=== PATIENT | male | born 1980 | race Hispanic/Latino ===

== ENCOUNTER 2024-02-20 12:51 | Emergency (ER) | payer SELFPAY ==
[~2024-02-20] VITALS: Ht 172.7 cm; Wt 108.0 kg
[2024-02-20 12:58] VITALS: TEMP 98.3
[2024-02-20 13:00] VITALS: RESP 16
[2024-02-20] MEDS: DIPHENHYDRAMINE HCL INJ 50 MG/ML VIAL IV ONE (13:20)
[2024-02-20] MEDS: ONDANSETRON HCL INJ 2MG/ML 2ML 2 MG/ML VIAL IV STA ×2 (13:20→14:12)
[2024-02-20] MEDS: SODIUM CHLORIDE 0.9% 1000ML 1,000 ML IV STA (13:20)
[2024-02-20] MEDS: HYDROCODONE/APAP 10MG-325MG TAB PO ONE (13:21)
[2024-02-20 13:46] LABS: BASOPHILS # (AUTO) 0.1 (0.0-0.1); BASOPHILS % 1.3 % (0.0-1.0); EOSINOPHILS # (AUTO) 0.1 (0.0-0.4); EOSINOPHILS % 1.1 % (0.0-6.0); HEMATOCRIT 42.9 % (38.2-49.6); LYMPHOCYTES # (AUTO) 2.4 (1.0-3.2); LYMPHOCYTES % 30.3 % (18.0-39.1); MEAN CORPUSCULAR HEMOGLOBIN 31.4 pg (28-32); MEAN CORPUSCULAR VOLUME 89.9 fL (81-99); MONOCYTES # (AUTO) 0.6 (0.2-0.8); NEUTROPHILS # (AUTO) 4.8 (2.1-6.9); NEUTROPHILS % 60.2 % (38.7-80.0); PLATELET COUNT 323 x10e3/uL (140-360); RED BLOOD COUNT 4.77 x10e6/uL (4.3-5.7); RED CELL DISTRIBUTION WIDTH 12.6 % (11.7-14.4)
[2024-02-20 14:03] LABS: ALBUMIN 4.2 g/dL (3.5-5.0); ALBUMIN/GLOBULIN RATIO 1.4 (0.8-2.0); ANION GAP 13.9 mmol/L (8-16); BILIRUBIN,TOTAL 0.4 mg/dL (0.2-1.2); CALCIUM 9.9 mg/dL (8.4-10.2); CREATININE, SERUM 1.09 mg/dL (0.72-1.25); POTASSIUM 3.9 mmol/L (3.5-5.1); TOTAL PROTEIN 7.3 g/dL (6.5-8.1)
[2024-02-20 14:06] LABS: CREATINE KINASE 82 IU/L (30-200)
[2024-02-20 14:19] LABS: TROPONIN I < 0.001 ng/mL (0-0.300)
[2024-02-20] MEDS: HYDRALAZINE HCL 20 MG/ML VIAL IV STA (14:26)
[2024-02-20 15:06] VITALS: PULSE 84
[2024-02-20] MEDS ORDERED: NORVASC10 MG PO (15:14)
[2024-02-20 15:31] VITALS: BP 146/94; PULSE 85; RESP 16; O2SAT 98
== END 2024-02-20 15:31 | disposition home or self-care (01) ==
LOC: ER 12:59
DX: I10 Essential (primary) hypertension (principal); R51.9 Headache, unspecified; F17.200 Nicotine dependence, unspecified, uncomplicated; Z11.52 Encounter for screening for COVID-19; Z79.899 Other long term (current) drug therapy
CPT/HCPCS: 36415; 70450; 71045; 80053; 82550; 83735; 84484; 85025; 93005; 99284; J0360; J1200; J2405; J7030; U0002